=== PATIENT | male | born 1965 | race Caucasian/White ===

== ENCOUNTER 2020-01-10 14:07 | Inpatient (IN) | payer OTHER ==
--- NOTE | 2020-01-10 16:48 | BHS.RME ---
Substance Use & Tx History - Substance Use History Alcohol Substance amount: 9 - 16 oz beers, [employer] w/ [facility] - liquor Frequency of use: Daily Substance route: Oral Date of Last Use: 01/10/20 ( 11 am) Cannabis Substance amount: $5 Frequency of use: Daily Substance route: Smoking - Last Treatment Date of last treatment: 1 year ago Where was last treatment: Detox (Left early - couldn't take) Physical/Psych/Mental Status - Behavior General Behavior: Increased activity (restlessness, agitation) Eye Contact: Normal - Cooperativeness Cooperativeness: Cooperative (Tearful) - Thinking Thought Processes: Goal Directed Thought content: Future oriented - Physical Health Problems Does patient presently have any injuries (include location): No Does patient currently have a fever: No CIWA Nausea/Vomitin-No Nausea/No Vomiting Muscle Tremors: 3 Anxiety: 4-Mod. Anxious/Guarded Agitation: 3 Paroxysmal Sweats: 3 (Increased facial moisture) Orientation: 0-Oriented Tacttile Disturbances: 0-None Auditory Disturbances: 0-None Visual Disturbances: 0-None Headache: 2-Mild (Frontal headache) CIWA-Ar Total Score: 15
[2020-01-10 17:53] VITALS: BMI 31.8
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
[2020-01-10] MEDS ORDERED: MAGNESIUM HYDROX 2400MG/30ML ORAL SUSPENSION 30 ML CUP PO PRN (18:54)
[2020-01-10] MEDS ORDERED: METHOCARBAMOL 500 MG TABLET PO PRN (18:54)
[2020-01-10] MEDS ORDERED: BISMUTH SUBSALICYLATE 524 MG/30 ML UD PO PRN (18:54)
[2020-01-10] MEDS ORDERED: ONDANSETRON *ODT* 4 MG TABLET SL PRN (18:54)
[2020-01-10] MEDS ORDERED: MAGNESIUM CITRATE 300 ML BOTTLE PO PRN (18:54)
[2020-01-10] MEDS ORDERED: ACETAMINOPHEN 325 MG TABLET (FP) PO PRN ×2 (18:54)
[2020-01-10] MEDS ORDERED: MENTHOL/PHENOL 1 EACH UD MM PRN (18:54)
[2020-01-10] MEDS ORDERED: hydrOXYzine PAMOATE 25 MG CAPSULE (FP) PO PRN (18:54)
[2020-01-10] MEDS ORDERED: MAG HYDROX/AL HYDROX/SIMETH 30 ML UNIT-DOSE CUP PO PRN (18:54)
[2020-01-10] MEDS ORDERED: IBUPROFEN 400 MG TABLET (FP) PO PRN (18:54)
[2020-01-10] MEDS: chlordiazePOXIDE HCL 10 MG CAPSULE PO PRN (20:00)
[2020-01-10] MEDS: ASPIRIN COATED 81 MG TABLET.EC PO SCH (22:06)
[2020-01-10] MEDS: MELATONIN 5 MG TABLETS PO PRN (22:07)
[2020-01-10] MEDS: THIAMINE HCL 100 MG TABLET (FP) PO SCH (22:07)
[2020-01-10] MEDS: chlordiazePOXIDE HCL 25 MG CAPSULE PO SCH (22:07)
[2020-01-11] MEDS: chlordiazePOXIDE HCL 25 MG CAPSULE PO SCH ×2 (06:00→13:12)
--- NOTE | 2020-01-11 09:42 | EKG ---
Test Reason : Blood Pressure : / mmHG Vent. Rate : 071 BPM Atrial Rate : 071 BPM P-R Int : 150 ms QRS Dur : 088 ms QT Int : 458 ms P-R-T Axes : 051 007 036 degrees QTc Int : 497 ms NORMAL SINUS RHYTHM WITH SINUS ARRHYTHMIA PROLONGED QT ABNORMAL ECG NO PREVIOUS ECGS AVAILABLE Confirmed by Shiv Goldberg MD ([id number]) on 01/11/2020 9:42:10 AM Referred By: Confirmed By:Shiv Goldberg MD
[2020-01-11] MEDS: ASPIRIN COATED 81 MG TABLET.EC PO SCH (09:43)
[2020-01-11] MEDS: PRENATAL VITAMINS W/ FOLIC ACID TABLET (FP) PO SCH (09:43)
[2020-01-11] MEDS: chlordiazePOXIDE HCL 10 MG CAPSULE PO PRN (09:44)
[2020-01-11 10:02] LABS: HEMATOCRIT 37.2 % (35.4-49); HEMOGLOBIN 12.4 GM/dL (11.7-16.9); MCHC 33.5 g/dl (32.0-35.9); MEAN CELL VOLUME 104.5 fl (80-96); MEAN PLT VOLUME 10.9 fl (7.5-11.1); PLATELET COUNT 51 K/MM3 (134-434); RBC 3.56 M/mm3 (4.00-5.60); RDW 16.4 % (11.9-15.9); WHITE BLOOD COUNT 3.3 K/mm3 (4.0-10.0)
[2020-01-11 10:14] LABS: ALBUMIN 2.7 g/dl (3.4-5.0); BILIRUBIN,TOTAL 5.5 mg/dL (0.2-1); BLOOD UREA NITROGEN 11.7 mg/dL (7-18); CALCIUM 8.3 mg/dL (8.5-10.1); CREATININE 0.9 mg/dL (0.55-1.3); TOT PROT 6.3 g/dl (6.4-8.2)
[2020-01-11] MEDS: CALCIPOTRIENE TP SCH ×2 (12:56→13:12)
[2020-01-11] MEDS: [UNRECOGNIZED DRUG - OTHER] TP SCH ×2 (12:56→13:12)
[2020-01-11] MEDS: BETAMETHASONE TP SCH ×2 (12:56→13:12)
[2020-01-11] MEDS: CALCIPOTRIENE 1 GM TP SCH ×2 (13:12→22:06)
--- NOTE | 2020-01-11 15:26 | PN ---
[facility] CIWA - CIWA Score Nausea/Vomitin-No Nausea/No Vomiting Muscle Tremors: 3 Anxiety: 4-Mod. Anxious/Guarded Agitation: 2 Paroxysmal Sweats: 2 Orientation: 0-Oriented Tacttile Disturbances: 0-None Auditory Disturbances: 0-None Visual Disturbances: 1-Very Mild Sensitivity Headache: 0-None Present CIWA-Ar Total Score: 12 S Progress Note (SOAP) Subjective: 54 years old male admitted on 01/10/20 for alcohol withdrawal sx management treating with librium detox regiment ast elevation discontinue librium begin ativan regiment Objective: 01/11/20 15:23 Vital Signs Temperature 98.1 F 01/11/20 12:31 Pulse Rate 65 01/11/20 12:31 Respiratory Rate 18 01/11/20 12:31 Blood Pressure 121/75 01/11/20 12:31 O2 Sat by Pulse Oximetry (%) Laboratory Last Values WBC 3.3 K/mm3 (4.0-10.0) L 01/11/20 07:30 RBC 3.56 M/mm3 (4.00-5.60) L 01/11/20 07:30 Hgb 12.4 GM/dL (11.7-16.9) 01/11/20 07:30 Hct 37.2 % (35.4-49) 01/11/20 07:30 MCV 104.5 fl (80-96) H 01/11/20 07:30 MCH 35.0 pg (25.7-33.7) H 01/11/20 07:30 MCHC 33.5 g/dl (32.0-35.9) 01/11/20 07:30 RDW 16.4 % (11.9-15.9) H 01/11/20 07:30 Plt Count 51 K/MM3 (134-434) L 01/11/20 07:30 MPV 10.9 fl (7.5-11.1) 01/11/20 07:30 Sodium 138 mmol/L (136-145) 01/11/20 07:30 Potassium 4.0 mmol/L (3.5-5.1) 01/11/20 07:30 Chloride 106 mmol/L (98-107) 01/11/20 07:30 Carbon Dioxide 27 mmol/L (21-32) 01/11/20 07:30 Anion Gap 5 MMOL/L (8-16) L 01/11/20 07:30 BUN 11.7 mg/dL (7-18) 01/11/20 07:30 Creatinine 0.9 mg/dL (0.55-1.3) 01/11/20 07:30 Est GFR (CKD-EPI)AfAm 110.27 01/11/20 07:30 Est GFR (CKD-EPI)NonAf 95.14 01/11/20 07:30 Random Glucose 183 mg/dL (74-106) H 01/11/20 07:30 Calcium 8.3 mg/dL (8.5-10.1) L 01/11/20 07:30 Total Bilirubin 5.5 mg/dL (0.2-1) H 01/11/20 07:30 AST 221 U/L (15-37) H 01/11/20 07:30 ALT 180 U/L (13-61) H 01/11/20 07:30 Alkaline Phosphatase 177 U/L (45-117) H 01/11/20 07:30 Total Protein 6.3 g/dl (6.4-8.2) L 01/11/20 07:30 Albumin 2.7 g/dl (3.4-5.0) L 01/11/20 07:30 RPR Titer Nonreactive (NONREACTIVE) 01/11/20 07:30 lab noted low plt glucose elevation ast elevation Assessment: 01/11/20 15:25 alcohol withdrawal 01/11/20 15:26 discontinue motrin discontinue tylenal Plan: ativan regiment repeat ast and fasting glucose
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
[2020-01-11] MEDS: CHLORHEXIDINE GLUCONATE 118 ML MOUTHWASH MM SCH ×2 (18:32→22:04)
[2020-01-11] MEDS ORDERED: LORazepam 0.5 MG TABLET PO SCH (22:00)
[2020-01-11] MEDS: MIRTAZAPINE 15 MG TABLET (FP) PO SCH (22:04)
[2020-01-11] MEDS: THIAMINE HCL 100 MG TABLET (FP) PO SCH (22:04)
[2020-01-11] MEDS: MELATONIN 5 MG TABLETS PO PRN (22:05)
[2020-01-12] MEDS ORDERED: chlordiazePOXIDE HCL 10 MG CAPSULE PO SCH (05:00)
[2020-01-12] MEDS: LORazepam 0.5 MG TABLET PO SCH ×2 (06:43→10:36)
[2020-01-12] MEDS: CHLORHEXIDINE GLUCONATE 118 ML MOUTHWASH MM SCH ×2 (10:36→22:16)
[2020-01-12] MEDS: CALCIPOTRIENE 1 GM TP SCH ×2 (10:36→22:16)
[2020-01-12] MEDS: ASPIRIN COATED 81 MG TABLET.EC PO SCH (10:36)
[2020-01-12] MEDS: PRENATAL VITAMINS W/ FOLIC ACID TABLET (FP) PO SCH (10:36)
--- NOTE | 2020-01-12 10:46 | PN ---
S CIWA - CIWA Score Nausea/Vomitin-Mild Nausea/No Vomiting Muscle Tremors: 2 Anxiety: 2 Agitation: 0-Normal Activity Paroxysmal Sweats: 1-Minimal Palms Moist Orientation: 0-Oriented Tacttile Disturbances: 0-None Auditory Disturbances: 0-None Visual Disturbances: 1-Very Mild Sensitivity Headache: 0-None Present CIWA-Ar Total Score: 7 BHS Progress Note (SOAP) Subjective: 54 years old male admitted on 01/10/20 for alcohol withdrawal sx management treating with ativan detox regiment feeling better today resting in bed comfortably discuss aftercare with staff [facility] Objective: 01/12/20 10:47 Vital Signs Temperature 96.8 F L 01/12/20 08:36 Pulse Rate 65 01/12/20 08:36 Respiratory Rate 18 01/12/20 08:36 Blood Pressure 115/71 01/12/20 08:36 O2 Sat by Pulse Oximetry (%) Laboratory Last Values WBC 3.3 K/mm3 (4.0-10.0) L 01/11/20 07:30 RBC 3.56 M/mm3 (4.00-5.60) L 01/11/20 07:30 Hgb 12.4 GM/dL (11.7-16.9) 01/11/20 07:30 Hct 37.2 % (35.4-49) 01/11/20 07:30 MCV 104.5 fl (80-96) H 01/11/20 07:30 MCH 35.0 pg (25.7-33.7) H 01/11/20 07:30 MCHC 33.5 g/dl (32.0-35.9) 01/11/20 07:30 RDW 16.4 % (11.9-15.9) H 01/11/20 07:30 Plt Count 51 K/MM3 (134-434) L 01/11/20 07:30 MPV 10.9 fl (7.5-11.1) 01/11/20 07:30 Sodium 138 mmol/L (136-145) 01/11/20 07:30 Potassium 4.0 mmol/L (3.5-5.1) 01/11/20 07:30 Chloride 106 mmol/L (98-107) 01/11/20 07:30 Carbon Dioxide 27 mmol/L (21-32) 01/11/20 07:30 Anion Gap 5 MMOL/L (8-16) L 01/11/20 07:30 BUN 11.7 mg/dL (7-18) 01/11/20 07:30 Creatinine 0.9 mg/dL (0.55-1.3) 01/11/20 07:30 Est GFR (CKD-EPI)AfAm 110.27 01/11/20 07:30 Est GFR (CKD-EPI)NonAf 95.14 01/11/20 07:30 Random Glucose 183 mg/dL (74-106) H 01/11/20 07:30 Calcium 8.3 mg/dL (8.5-10.1) L 01/11/20 07:30 Total Bilirubin 5.5 mg/dL (0.2-1) H 01/11/20 07:30 AST 221 U/L (15-37) H 01/11/20 07:30 ALT 180 U/L (13-61) H 01/11/20 07:30 Alkaline Phosphatase 177 U/L (45-117) H 01/11/20 07:30 Total Protein 6.3 g/dl (6.4-8.2) L 01/11/20 07:30 Albumin 2.7 g/dl (3.4-5.0) L 01/11/20 07:30 RPR Titer Nonreactive (NONREACTIVE) 01/11/20 07:30 lab noted low plt glucose and ast elevation Assessment: 01/12/20 10:48 alcohol withdrawal Plan: ativan regiment
[2020-01-12 11:39] LABS: GLUCOSE,FASTING 119 mg/dL (74-106); SGOT/AST 189 U/L (15-37)
[2020-01-12] MEDS: LORazepam 0.5 MG TABLET PO PRN ×2 (15:12→22:19)
[2020-01-12] MEDS ORDERED: NICOTINE POLACRILEX 2 MG GUM BUC PRN (15:13)
[2020-01-12] MEDS ORDERED: NICOTINE 14 MG/24 HOURS TOPICAL PATCH TD SCH (15:14)
[2020-01-12] MEDS ORDERED: diphenhydrAMINE HCL 25 MG CAPSULE (FP) PO PRN (19:14)
[2020-01-12] MEDS: MIRTAZAPINE 15 MG TABLET (FP) PO SCH (22:16)
[2020-01-12] MEDS: MELATONIN 5 MG TABLETS PO PRN (22:16)
[2020-01-12] MEDS: THIAMINE HCL 100 MG TABLET (FP) PO SCH (23:10)
[2020-01-13] MEDS ORDERED: chlordiazePOXIDE HCL 10 MG CAPSULE PO ONE (05:00)
[2020-01-13] MEDS ORDERED: LORazepam 0.5 MG TABLET PO ONE (05:00)
[2020-01-13 09:36] VITALS: BP 122/66; PULSE 72; TEMP 96.8
[2020-01-13] MEDS ORDERED: NICOTINE 14 MG/24 HOURS TOPICAL PATCH TD SCH (10:00)
--- NOTE | 2020-01-13 10:56 | DS ---
[facility] Detox Discharge Summary Admission Date: 01/10/20 Discharge Date: 01/13/20 - History Present History: Alcohol Dependence Additional Comments: 54 years old male admitted on 01/10/20 for alcohol withdrawal sx management treated with ativan detox regiment Mr Bojorquez has completed the ativan regiment and tolerated well seen by psychiatrist amber champion alert oriented x 3 respiratory clear lungs bilaterally on auscultation abdomen soft round obese no tenderness skin warm and dry Pertinent Past History: time for discharge 35 minutes - Physical Exam Results Vital Signs: Vital Signs Temperature 96.8 F L 01/13/20 08:40 Pulse Rate 72 01/13/20 08:40 Respiratory Rate 18 01/13/20 08:40 Blood Pressure 122/66 01/13/20 08:40 O2 Sat by Pulse Oximetry (%) Pertinent Admission Physical Exam Findings: alcohol withdrawal Laboratory Last Values WBC 3.3 K/mm3 (4.0-10.0) L 01/11/20 07:30 RBC 3.56 M/mm3 (4.00-5.60) L 01/11/20 07:30 Hgb 12.4 GM/dL (11.7-16.9) 01/11/20 07:30 Hct 37.2 % (35.4-49) 01/11/20 07:30 MCV 104.5 fl (80-96) H 01/11/20 07:30 MCH 35.0 pg (25.7-33.7) H 01/11/20 07:30 MCHC 33.5 g/dl (32.0-35.9) 01/11/20 07:30 RDW 16.4 % (11.9-15.9) H 01/11/20 07:30 Plt Count 51 K/MM3 (134-434) L 01/11/20 07:30 MPV 10.9 fl (7.5-11.1) 01/11/20 07:30 Sodium 138 mmol/L (136-145) 01/11/20 07:30 Potassium 4.0 mmol/L (3.5-5.1) 01/11/20 07:30 Chloride 106 mmol/L (98-107) 01/11/20 07:30 Carbon Dioxide 27 mmol/L (21-32) 01/11/20 07:30 Anion Gap 5 MMOL/L (8-16) L 01/11/20 07:30 BUN 11.7 mg/dL (7-18) 01/11/20 07:30 Creatinine 0.9 mg/dL (0.55-1.3) 01/11/20 07:30 Est GFR (CKD-EPI)AfAm 110.27 01/11/20 07:30 Est GFR (CKD-EPI)NonAf 95.14 01/11/20 07:30 Random Glucose 183 mg/dL (74-106) H 01/11/20 07:30 Fasting Glucose 119 mg/dL (74-106) H 01/12/20 08:00 Calcium 8.3 mg/dL (8.5-10.1) L 01/11/20 07:30 Total Bilirubin 5.5 mg/dL (0.2-1) H 01/11/20 07:30 AST 189 U/L (15-37) H 01/12/20 08:00 ALT 180 U/L (13-61) H 01/11/20 07:30 Alkaline Phosphatase 177 U/L (45-117) H 01/11/20 07:30 Total Protein 6.3 g/dl (6.4-8.2) L 01/11/20 07:30 Albumin 2.7 g/dl (3.4-5.0) L 01/11/20 07:30 RPR Titer Nonreactive (NONREACTIVE) 01/11/20 07:30 lab noted patient will follow up glucose and ast at the aftercare facility - Treatment Hospital Course: Detox Protocol Followed, Detoxed Safely, Responded well, Discharged Condition Good, Rehab Referral Accepted Patient has Accepted a Rehab Referral to: [facility] - Medication Discharge Medications: Ambulatory Orders Calcipotriene 1 gm TP BID 01/11/20 - Diagnosis (1) Elevated serum aspartate aminotransferase level Status: Chronic (2) Alcohol use disorder Status: Acute (3) Nicotine dependence Status: Acute Qualifiers: Nicotine product type: cigarettes Substance use status: in withdrawal Qualified Code(s): F17.213 - Nicotine dependence, cigarettes, with withdrawal (4) Substance induced mood disorder Status: Suspected - AMA Did Patient Leave Against Medical Advice: No CIWA Score - CIWA Score Nausea/Vomitin-No Nausea/No Vomiting Muscle Tremors: 2 Anxiety: 1-Mildly Anxious Agitation: 0-Normal Activity Paroxysmal Sweats: No Perspiration Orientation: 0-Oriented Tacttile Disturbances: 0-None Auditory Disturbances: 0-None Visual Disturbances: 1-Very Mild Sensitivity Headache: 0-None Present CIWA-Ar Total Score: 4
== END 2020-01-13 08:52 | disposition other institution (70) | DRG 775 ==
LOC: YASAS 14:07 → Y3N 18:55
PROVIDERS: ADMIT Allergy & Immunology; ATTEND Allergy & Immunology
PROC: HZ2ZZZZ Detoxification Services for Substance Abuse Treatment (ICD-10-PCS; principal; 2020-01-10)
DX: F10.230 Alcohol dependence with withdrawal, uncomplicated (principal); F12.20 Cannabis dependence, uncomplicated; F17.210 Nicotine dependence, cigarettes, uncomplicated; F19.24 Other psychoactive substance dependence with psychoactive substance-induced mood disorder; F25.9 Schizoaffective disorder, unspecified; I10 Essential (primary) hypertension; K76.9 Liver disease, unspecified; R94.31 Abnormal electrocardiogram [ECG] [EKG]; Z86.73 Personal history of transient ischemic attack (TIA), and cerebral infarction without residual deficits; Z87.11 Personal history of peptic ulcer disease; Z87.828 Personal history of other (healed) physical injury and trauma; Z91.013 Allergy to seafood; Z91.5 Personal history of self-harm
CPT/HCPCS: 36415; 80053; 82947; 84450; 85027; 86593; 93005; 93010